=== PATIENT | male | born 1955 | race Caucasian/White ===

== ENCOUNTER 2016-10-27 09:38 | Emergency (ER) | payer OTHER ==
[~2016-10-27 09:38] MED LIST: ACID CONTROL150 MG PO; ASPIRIN EC81 MG PO; COLACE 100MG C100 MG PO; CORDARONE 200M200 MG PO; ENDOCET 10-3251 EACH PO; FLONASE ALLER15.8 ML; IBUPROFEN800 MG PO; IRON325 MG PO; MECLIZINE HCL12.5 MG PO; NEURONTIN 400400 MG PO; PLAVIX 75 MG TA75 MG PO; SOTALOL PO; SYNTHROID100 MCG PO; VALIUM 2 MG TAB2 MG PO; ZANAFLEX4 M1 PO
[2016-10-27 11:23] LABS: HEMOGLOBIN 12.6 gm/dl (14.0-17.5); RED BLOOD COUNT 4.26 M/UL (4.20-5.50)
[2016-10-27 11:52] LABS: BUN/CREATININE RATIO 15 (0-10)
== END 2016-10-27 14:25 | disposition home or self-care (01) ==
LOC: ER1 09:38
PROVIDERS: Emergency Medicine
DX: S22.31XA Fracture of one rib, right side, initial encounter for closed fracture (principal); R31.9 Hematuria, unspecified; W11.XXXA Fall on and from ladder, initial encounter; Y92.009 Unspecified place in unspecified non-institutional (private) residence as the place of occurrence of the external cause
CPT/HCPCS: 36415; 71101; 80053; 81001; 83690; 84484; 85025; 85379; 96374; 96375; 99283; J2270; J2405